=== PATIENT | male | born 1985 | race Caucasian/White ===

== ENCOUNTER 2020-10-07 14:36 | Emergency (ER) | payer BC, OTHER ==
[~2020-10-07] VITALS: Ht 182.9 cm; Wt 106.1 kg
--- NOTE | 2020-10-07 18:57 | NUR ---
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
[2020-10-07] MEDS ORDERED: SODIUM CHLORIDE FLUSH 10ML SYR IVF ONE (20:00)
[2020-10-07] MEDS: AMPICILLIN/SULBACTAM 3 GM in SODIUM CHLORIDE 0.9% 100 ML IV ONE ×2 (20:11→20:36)
--- NOTE | 2020-10-07 20:43 | NUR ---
PER [facility]P NO BLOOD CULTURES BEFORE ABX ADMIN.
[2020-10-07 21:20] VITALS: BP 120/93
== END 2020-10-07 21:32 | disposition home or self-care (01) ==
LOC: ED 21:30
DX: L03.115 Cellulitis of right lower limb (principal)
CPT/HCPCS: 73564; 96365; 99284; J0295